=== PATIENT | male | born 1975 | race Asian ===

== ENCOUNTER → 2020-03-09 | Outpatient (CLI) | payer OTHER | END | disposition home or self-care (01) | LOC: MI 03-06 10:00 | PROC: BR30ZZZ Magnetic Resonance Imaging (MRI) of Cervical Spine (ICD-10-PCS; principal; 2020-03-09) | PROC: BR37ZZZ Magnetic Resonance Imaging (MRI) of Thoracic Spine (ICD-10-PCS; 2020-03-09) | DX: M54.12 Radiculopathy, cervical region (principal); M54.14 Radiculopathy, thoracic region ==